=== PATIENT | female | born 2000 | race Two or more races ===

== ENCOUNTER 2020-05-28 17:48 | Emergency (ER) | payer BC ==
[~2020-05-28] VITALS: Ht 162.6 cm; Wt 65.5 kg
[2020-05-28] MEDS ORDERED: KETOROLAC 30 MG/1 ML IM ONE (18:30)
[2020-05-28] MEDS ORDERED: KETOROLAC 30 MG/1 ML ONE (18:35)
[2020-05-28 19:00] VITALS: BP 135/67
--- NOTE | 2020-05-28 19:00 | NUR ---
PT REPORTS L CHEST PAIN, UNDER HER L BREAST. DENIES RADIATION TO HER ARM AT THIS TIME. MEDICATED PER ORDERS. UNDERSTANDS POC.
--- NOTE | 2020-05-28 19:46 | NUR ---
PT REPORTS FEELING MUCH BETTER AFTER TORADOL. D/C INSTRUCTIONS, MEDS & F/U APPT RV'WD WITH PT, SHE VERBALIZES UNDERSTANDING. RX GIVEN X2. PT AMBULATED OUT OF ED WITHOUT DIFFICULTY.
== END 2020-05-28 19:47 | disposition home or self-care (01) ==
LOC: ED 18:26
DX: S16.1XXA Strain of muscle, fascia and tendon at neck level, initial encounter (principal); R07.89 Other chest pain; X58.XXXA Exposure to other specified factors, initial encounter; Y93.89 Activity, other specified; Y92.89 Other specified places as the place of occurrence of the external cause; Y99.8 Other external cause status
CPT/HCPCS: 71045; 72050; 93005; 96372; 99284; J1885